=== PATIENT | female | born 1990 | race American Indian/Alaskan Native ===

== ENCOUNTER 2016-08-28 06:18 | Emergency (ER) | payer SELFPAY ==
[2016-08-28] MEDS ORDERED: TYLENOL ONE (06:31)
[2016-08-28] MEDS: TYLENOL PO ONE (06:44)
[2016-08-28 07:53] LABS: Basophils % (Auto) 1.1 % (0.0-1.8); Eosinophils % (Auto) 2.5 % (0.0-4.3); Hematocrit 39.5 % (30.3-42.9); Hemoglobin 12.3 gm/dl (10.1-14.3); Mean Corpuscular HGB Conc 31 % (30-34); Red Blood Count 5.72 M/mm3 (3.65-5.03); Red Cell Distribution Width 15.9 % (13.2-15.2); White Blood Count 7.3 K/mm3 (4.5-11.0)
[2016-08-28 08:02] LABS: Mean Corpuscular Hemoglobin 22 pg (28-32); Mean Corpuscular Volume 69 fl (79-97)
[2016-08-28 08:03] LABS: Platelet Count 191 K/mm3 (140-440)
[2016-08-28 08:18] LABS: Anion Gap 20 mmol/L; BUN/Creatinine Ratio 15.55; Blood Urea Nitrogen 14 mg/dL (7-17); Calcium 9.3 mg/dL (8.4-10.2); Carbon Dioxide 24 mmol/L (22-30); Chloride 99.1 mmol/L (98-107); Glucose 94 mg/dL (65-100); Potassium 4.4 mmol/L (3.6-5.0); Sodium 139 mmol/L (137-145)
--- NOTE | 2016-08-28 08:18 | Emergency Department Report ---
HPI - General Chief Complaint: Chest Pain Time Seen by Provider: 08/28/16 08:12 - HPI HPI: Chief complaint: Rash to chest and chest wall pain HPI: Patient complains of bilateral chest rash under her breasts. Right greater than left. Patient has had several lesions that she has expressed pus from. Patient states her chest wall slightly tender. No cough no shortness of breath. Patient states she is homeless for the last 4 days. States the rashes been going on for approximately a week. The fever, shortness of breath, cough, history of asthma, history of hypertension, diabetes or cocaine. Patient does smoke and does occasionally drink alcohol. No family history of coronary artery disease and no personal history of DVT. Mode of arrival: private car Source: Patient Began: Approximately one week Duration: One week Context: See above Quality: Sore anterior chest Severity: Mild Improved with: Nothing Worsened with: Palpation Associated signs and symptoms: See above ED Past Medical Hx - Past Medical History Previous Medical History?: Yes Additional medical history: Gastritis. Obesity - Surgical History Past Surgical History?: No - Social History Smoking Status: Current Every Day Smoker Substance Use Type: None - Medications Home Medications: Home Medications Medication Instructions Recorded Confirmed Last Taken Type Cephalexin [Keflex] 1,000 mg PO Q12HR #40 cap 08/28/16 Unknown Rx ED Review of Systems ROS: Stated complaint: CHEST PAIN Other details as noted in HPI ROS Constitutional: No fever ENT: No uri symptoms Cardiovascular: chest pain Respiratory: No sob or cough GI: No nausea vomiting or diarrhea : No dysuria frequency or urgency, Skin: rash, Neuro: No focal weakness or numbness Psych: No depression Kiran/lymph: No edema Physical Exam - Physical Exam Vital Signs: Vital Signs 08/28/16 08/28/16 08/28/16 03:14 03:20 03:30 Temperature Pulse Rate 82 83 Respiratory 25 H 22 Rate Blood Pressure 142/87 142/87 142/87 Blood Pressure [Right] O2 Sat by Pulse Oximetry 08/28/16 08/28/16 08/28/16 03:40 03:50 04:00 Temperature Pulse Rate 76 87 85 Respiratory 22 22 22 Rate Blood Pressure 117/74 135/87 135/87 Blood Pressure [Right] O2 Sat by Pulse Oximetry 08/28/16 08/28/16 08/28/16 04:10 04:20 04:30 Temperature Pulse Rate 86 88 96 H Respiratory 23 17 22 Rate Blood Pressure 113/77 119/80 119/80 Blood Pressure [Right] O2 Sat by Pulse Oximetry 08/28/16 08/28/16 08/28/16 06:37 07:06 07:10 Temperature 99.4 F Pulse Rate 74 75 69 Respiratory 20 13 12 Rate Blood Pressure 110/71 101/62 Blood Pressure 139/95 [Right] O2 Sat by Pulse 100 100 Oximetry 08/28/16 08/28/16 08/28/16 07:20 07:30 07:40 Temperature Pulse Rate 72 76 72 Respiratory 12 13 16 Rate Blood Pressure 111/72 111/72 128/83 Blood Pressure [Right] O2 Sat by Pulse Oximetry 08/28/16 07:49 Temperature Pulse Rate 87 Respiratory Rate Blood Pressure Blood Pressure [Right] O2 Sat by Pulse Oximetry Physical Exam: GENERAL: The patient is well-developed well-nourished . HEENT: Normocephalic. Atraumatic. Extraocular motions are intact. Patient has moist mucous membranes. Excess facial hair for a female. NECK: Supple. No meningitic signs are noted. There is no adenopathy noted. CHEST/LUNGS: Clear to auscultation. There is no respiratory distress noted. Rash under the right breast with several pustules. Erythema without pustules under the left breast. Mild chest wall tenderness reproducing chest pain. HEART/CARDIOVASCULAR: Regular. There is no tachycardia. There is no gallop rub or murmur. ABDOMEN: Abdomen is soft, nontender. Patient has normal bowel sounds. There is no abdominal distention. SKIN: There is no edema. There is no diaphoresis. NEURO: The patient is awake, alert, and oriented. The patient is cooperative. The patient has no focal neurologic deficits. The patient has normal speech. MUSCULOSKELETAL: There is no tenderness or deformity. There is no limitation range of motion. There is no evidence of acute injury. ED Course Vital Signs 08/28/16 08/28/16 08/28/16 03:14 03:20 03:30 Temperature Pulse Rate 82 83 Respiratory 25 H 22 Rate Blood Pressure 142/87 142/87 142/87 Blood Pressure [Right] O2 Sat by Pulse Oximetry 08/28/16 08/28/16 08/28/16 03:40 03:50 04:00 Temperature Pulse Rate 76 87 85 Respiratory 22 22 22 Rate Blood Pressure 117/74 135/87 135/87 Blood Pressure [Right] O2 Sat by Pulse Oximetry 08/28/16 08/28/16 08/28/16 04:10 04:20 04:30 Temperature Pulse Rate 86 88 96 H Respiratory 23 17 22 Rate Blood Pressure 113/77 119/80 119/80 Blood Pressure [Right] O2 Sat by Pulse Oximetry 08/28/16 08/28/16 08/28/16 06:37 07:06 07:10 Temperature 99.4 F Pulse Rate 74 75 69 Respiratory 20 13 12 Rate Blood Pressure 110/71 101/62 Blood Pressure 139/95 [Right] O2 Sat by Pulse 100 100 Oximetry 08/28/16 08/28/16 08/28/16 07:20 07:30 07:40 Temperature Pulse Rate 72 76 72 Respiratory 12 13 16 Rate Blood Pressure 111/72 111/72 128/83 Blood Pressure [Right] O2 Sat by Pulse Oximetry 08/28/16 07:49 Temperature Pulse Rate 87 Respiratory Rate Blood Pressure Blood Pressure [Right] O2 Sat by Pulse Oximetry ED Medical Decision Making - Lab Data Result diagrams: 08/28/16 07:25 08/28/16 07:25 Laboratory Tests 08/28/16 07:25 HCG, Qual Negative - EKG Data -: EKG Interpreted by Me EKG shows normal: sinus rhythm Rate: normal (68) - EKG Data When compared to previous EKG there are: no significant change Interpretation: normal EKG - Radiology Data interpreted by me: Chest x-ray shows no acute process. Critical care attestation.: If time is entered above; I have spent that time in minutes in the direct care of this critically ill patient, excluding procedure time. ED Disposition Clinical Impression: Folliculitis Disposition: DISCHARGED TO HOME OR SELFCARE Is pt being admited?: No Does the pt Need Aspirin: No Condition: Stable Instructions: Folliculitis (ED) Prescriptions: Cephalexin [Keflex] 1,000 mg PO Q12HR #40 cap Referrals: PRIMARY CAREMD [Primary Care Provider] - 3-5 Days [facility] [Provider Group] - 3-5 Days Time of Disposition: 09:35
--- NOTE | 2016-08-28 08:52 | XRay Report ---
ROUTINE CHEST, TWO VIEWS: HISTORY: chest pain. The trachea, heart, mediastinal contour, lung smith and bony thorax are unremarkable. IMPRESSION: Unremarkable chest x-ray.
[2016-08-28 09:48] VITALS: BP 114/71
[2016-08-28] MEDS: KEFLEX PO ONE (09:57)
== END 2016-08-28 10:20 | disposition home or self-care (01) ==
LOC: ED 06:18
DX: L73.9 Follicular disorder, unspecified (principal); F17.200 Nicotine dependence, unspecified, uncomplicated
CPT/HCPCS: 36415; 71020; 80048; 84484; 84703; 85025; 93005; 93010; 99285

== ENCOUNTER 2018-07-17 06:53 | Emergency (ER) | payer SELFPAY ==
[2018-07-17] MEDS ORDERED: NACL 0.9% 1000 ML 1,000 ML IV ONE ×2 (07:40→08:13)
[2018-07-17 08:05] LABS: Hematocrit 40.1 % (30.3-42.9); Hemoglobin 12.7 gm/dl (10.1-14.3); Mean Corpuscular HGB Conc 32 % (30-34); Platelet Count 215 K/mm3 (140-440); Red Blood Count 5.81 M/mm3 (3.65-5.03)
[2018-07-17 08:06] LABS: Mean Corpuscular Volume 69 fl (79-97)
[2018-07-17] MEDS ORDERED: REGLAN IV ONE (08:13)
--- NOTE | 2018-07-17 08:18 | Emergency Department Report ---
ED Abdominal Pain HPI - General Chief Complaint: Abdominal Pain Stated Complaint: BACK PAIN,ABD PAIN, VOMITING Source: patient Mode of arrival: Ambulatory Limitations: No Limitations - History of Present Illness Initial Comments: This is a 27-year-old -[place] female represents with abdominal pain for 2 weeks. Patient reports pain is in the left upper quadrant and nonradiating. She reports pain as a sharp intermittent pain that lasts for 30 minutes to an hour. She also reports nausea and vomiting. History of gastritis and obesity. Patient is a current smoker, 2-3 cigarettes per day. She denies fever, chest pain, shortness of breath, diarrhea, frequency, urgency, or dysuria. MD Complaint: abdominal pain Onset/Timin -: week(s) Location: LUQ Radiation: none Migration to: no migration Severity: moderate Severity scale (0 -10): 5 Quality: cramping, sharp Consistency: intermittent Improves With: nothing Worsens With: eating Associated Symptoms: nausea, vomiting. denies: diarrhea, fever, chills, constipation, dysuria, hematemesis, hematochezia, melena, hematuria, anorexia, syncope - Related Data LMP Date: 06/26/18 Previous Rx's Medication Instructions Recorded Last Taken Type cephALEXin [Keflex] 1,000 mg PO Q12HR #40 cap 08/28/16 Unknown Rx Ciprofloxacin HCl [Cipro] 500 mg PO BID #14 tablet 07/17/18 Unknown Rx Omeprazole 40 mg PO DAILY #30 capsule. 07/17/18 Unknown Rx Ondansetron [Zofran Odt] 4 mg PO Q8HR PRN #12 tab.rapdis 07/17/18 Unknown Rx Allergies Allergy/AdvReac Type Severity Reaction Status Date / Time sulfamethoxazole Allergy Swelling Verified 08/28/16 06:37 [From Bactrim] trimethoprim [From Bactrim] Allergy Swelling Verified 08/28/16 06:37 ED Review of Systems ROS: Stated complaint: BACK PAIN,ABD PAIN, VOMITING Other details as noted in HPI Constitutional: denies: chills, fever Respiratory: denies: cough, shortness of breath, wheezing Cardiovascular: denies: chest pain, palpitations Gastrointestinal: abdominal pain, nausea, vomiting. denies: diarrhea, constipation, hematemesis, melena, hematochezia Genitourinary: denies: urgency, dysuria, discharge Neurological: denies: headache, weakness, paresthesias Psychiatric: denies: anxiety, depression ED Past Medical Hx - Past Medical History Previous Medical History?: Yes Additional medical history: Gastritis. Obesity - Surgical History Past Surgical History?: No - Social History Smoking Status: Current Every Day Smoker Substance Use Type: None - Medications Home Medications: Home Medications Medication Instructions Recorded Confirmed Last Taken Type cephALEXin [Keflex] 1,000 mg PO Q12HR #40 cap 08/28/16 Unknown Rx Ciprofloxacin HCl [Cipro] 500 mg PO BID #14 tablet 07/17/18 Unknown Rx Omeprazole 40 mg PO DAILY #30 capsule. 07/17/18 Unknown Rx Ondansetron [Zofran Odt] 4 mg PO Q8HR PRN #12 tab.rapdis 07/17/18 Unknown Rx ED Physical Exam - General Limitations: No Limitations General appearance: alert, in no apparent distress, obese (morbidly obese ) - Respiratory Respiratory exam: Present: normal lung sounds bilaterally. Absent: respiratory distress - Cardiovascular Cardiovascular Exam: Present: regular rate, normal rhythm. Absent: systolic murmur, diastolic murmur, rubs, gallop - GI/Abdominal GI/Abdominal exam: Present: soft, tenderness (right upper quadrant and left upper quadrant tenderness), normal bowel sounds. Absent: distended, guarding, rebound, rigid, organomegaly, mass, bruit, pulsatile mass, hernia - Back Exam Back exam: Absent: CVA tenderness (R), CVA tenderness (L) - Neurological Exam Neurological exam: Present: alert, oriented X3, normal gait - Psychiatric Psychiatric exam: Present: normal affect, normal mood - Skin Skin exam: Present: warm, dry, intact, normal color. Absent: rash ED Course Vital Signs 07/17/18 07:37 Temperature 98.8 F Pulse Rate 100 H O2 Sat by Pulse 100 Oximetry ED Medical Decision Making - Lab Data Result diagrams: 07/17/18 07:52 07/17/18 07:52 Lab Results 07/17/18 07/17/18 07/17/18 Range/Units 07:52 07:52 07:52 WBC 11.7 H (4.5-11.0) K/mm3 RBC 5.81 H (3.65-5.03) M/mm3 Hgb 12.7 (10.1-14.3) gm/dl Hct 40.1 (30.3-42.9) % MCV 69 L (79-97) fl MCH 22 L (28-32) pg MCHC 32 (30-34) % RDW 16.0 H (13.2-15.2) % Plt Count 215 (140-440) K/mm3 Eos % (Auto) Behavioral Consultant Add Manual Diff Complete Total Counted 100 Seg Neuts % (Manual) 53.0 (40.0-70.0) % Band Neutrophils % 0 % Lymphocytes % (Manual) 22.0 (13.4-35.0) % Reactive Lymphs % (Man) 0 % Monocytes % (Manual) 3.0 (0.0-7.3) % Eosinophils % (Manual) 21.0 H (0.0-4.3) % Basophils % (Manual) 1.0 (0.0-1.8) % Metamyelocytes % 0 % Myelocytes % 0 % Promyelocytes % 0 % Blast Cells % 0 % Nucleated RBC % Not Reportable Seg Neutrophils # Man 6.2 (1.8-7.7) K/mm3 Band Neutrophils # 0.0 K/mm3 Lymphocytes # (Manual) 2.6 (1.2-5.4) K/mm3 Abs React Lymphs (Man) 0.0 K/mm3 Monocytes # (Manual) 0.4 (0.0-0.8) K/mm3 Eosinophils # (Manual) 2.5 H (0.0-0.4) K/mm3 Basophils # (Manual) 0.1 (0.0-0.1) K/mm3 Metamyelocytes # 0.0 K/mm3 Myelocytes # 0.0 K/mm3 Promyelocytes # 0.0 K/mm3 Blast Cells # 0.0 K/mm3 WBC Morphology Not Reportable Hypersegmented Neuts Not Reportable Hyposegmented Neuts Not Reportable Hypogranular Neuts Not Reportable Smudge Cells Not Reportable Toxic Granulation Not Reportable Toxic Vacuolation Not Reportable Dohle Bodies Not Reportable Pelger-Huet Anomaly Not Reportable Jaleesa Rods Not Reportable Platelet Estimate Consistent w auto Clumped Platelets Not Reportable Plt Clumps, EDTA Not Reportable Large Platelets Not Reportable Giant Platelets Not Reportable Platelet Satelliting Not Reportable Plt Morphology Comment Not Reportable RBC Morphology Not Reportable Dimorphic RBCs Not Reportable Polychromasia Not Reportable Hypochromasia Not Reportable Poikilocytosis 1+ Anisocytosis 1+ Microcytosis Not Reportable Macrocytosis Not Reportable Spherocytes Not Reportable Pappenheimer Bodies Not Reportable Sickle Cells Not Reportable Target Cells Not Reportable Tear Drop Cells Not Reportable Ovalocytes Few Helmet Cells Not Reportable Mckoy-Watson Bodies Not Reportable Viola Rings Not Reportable [place] Cells Not Reportable Bite Cells Not Reportable Crenated Cell Not Reportable Elliptocytes Not Reportable Acanthocytes (Spur) Not Reportable Rouleaux Not Reportable Hemoglobin C Crystals Not Reportable Schistocytes Not Reportable Malaria parasites Not Reportable Michael Bodies Not Reportable Hem Pathologist Commnt No Sodium 137 (137-145) mmol/L Potassium 4.3 (3.6-5.0) mmol/L Chloride 102.8 (98-107) mmol/L Carbon Dioxide 23 (22-30) mmol/L Anion Gap 16 mmol/L BUN 10 (7-17) mg/dL Creatinine 0.8 (0.7-1.2) mg/dL Estimated GFR > 60 ml/min BUN/Creatinine Ratio 13 % Glucose 99 (65-100) mg/dL Calcium 9.0 (8.4-10.2) mg/dL Total Bilirubin 0.60 (0.1-1.2) mg/dL AST 15 (5-40) units/L ALT 17 (7-56) units/L Alkaline Phosphatase 69 (35-129) units/L Total Protein 7.0 (6.3-8.2) g/dL Albumin 4.0 (3.9-5) g/dL Albumin/Globulin Ratio 1.3 % Lipase (13-60) units/L Urine Color Yellow (Yellow) Urine Turbidity Clear (Clear) Urine pH 6.0 (5.0-7.0) Ur Specific [place] 1.016 (1.003-1.030) Urine Protein <15 mg/dl (Negative) mg/dL Urine Glucose (UA) Neg (Negative) mg/dL Urine Ketones Neg (Negative) mg/dL Urine Blood Mod (Negative) Urine Nitrite Neg (Negative) Urine Bilirubin Neg (Negative) Urine Urobilinogen 2.0 (<2.0) mg/dL Ur Leukocyte Esterase Neg (Negative) Urine WBC (Auto) < 1.0 (0.0-6.0) /HPF Urine RBC (Auto) 2.0 (0.0-6.0) /HPF U Epithel Cells (Auto) 2.0 (0-13.0) /HPF Urine Mucus Few /HPF Urine HCG, Qual (Negative) 07/17/18 07/17/18 Range/Units 07:52 07:52 WBC (4.5-11.0) K/mm3 RBC (3.65-5.03) M/mm3 Hgb (10.1-14.3) gm/dl Hct (30.3-42.9) % MCV (79-97) fl MCH (28-32) pg MCHC (30-34) % RDW (13.2-15.2) % Plt Count (140-440) K/mm3 Eos % (Auto) Add Manual Diff Total Counted Seg Neuts % (Manual) (40.0-70.0) % Band Neutrophils % % Lymphocytes % (Manual) (13.4-35.0) % Reactive Lymphs % (Man) % Monocytes % (Manual) (0.0-7.3) % Eosinophils % (Manual) (0.0-4.3) % Basophils % (Manual) (0.0-1.8) % Metamyelocytes % % Myelocytes % % Promyelocytes % % Blast Cells % % Nucleated RBC % Seg Neutrophils # Man (1.8-7.7) K/mm3 Band Neutrophils # K/mm3 Lymphocytes # (Manual) (1.2-5.4) K/mm3 Abs React Lymphs (Man) K/mm3 Monocytes # (Manual) (0.0-0.8) K/mm3 Eosinophils # (Manual) (0.0-0.4) K/mm3 Basophils # (Manual) (0.0-0.1) K/mm3 Metamyelocytes # K/mm3 Myelocytes # K/mm3 Promyelocytes # K/mm3 Blast Cells # K/mm3 WBC Morphology Hypersegmented Neuts Hyposegmented Neuts Hypogranular Neuts Smudge Cells Toxic Granulation Toxic Vacuolation Dohle Bodies Pelger-Huet Anomaly Jaleesa Rods Platelet Estimate Clumped Platelets Plt Clumps, EDTA Large Platelets Giant Platelets Platelet Satelliting Plt Morphology Comment RBC Morphology Dimorphic RBCs Polychromasia Hypochromasia Poikilocytosis Anisocytosis Microcytosis Macrocytosis Spherocytes Pappenheimer Bodies Sickle Cells Target Cells Tear Drop Cells Ovalocytes Helmet Cells Mckoy-Watson Bodies Viola Rings [place] Cells Bite Cells Crenated Cell Elliptocytes Acanthocytes (Spur) Rouleaux Hemoglobin C Crystals Schistocytes Malaria parasites Michael Bodies Hem Pathologist Commnt Sodium (137-145) mmol/L Potassium (3.6-5.0) mmol/L Chloride (98-107) mmol/L Carbon Dioxide (22-30) mmol/L Anion Gap mmol/L BUN (7-17) mg/dL Creatinine (0.7-1.2) mg/dL Estimated GFR ml/min BUN/Creatinine Ratio % Glucose (65-100) mg/dL Calcium (8.4-10.2) mg/dL Total Bilirubin (0.1-1.2) mg/dL AST (5-40) units/L ALT (7-56) units/L Alkaline Phosphatase (35-129) units/L Total Protein (6.3-8.2) g/dL Albumin (3.9-5) g/dL Albumin/Globulin Ratio % Lipase 23 (13-60) units/L Urine Color (Yellow) Urine Turbidity (Clear) Urine pH (5.0-7.0) Ur Specific [place] (1.003-1.030) Urine Protein (Negative) mg/dL Urine Glucose (UA) (Negative) mg/dL Urine Ketones (Negative) mg/dL Urine Blood (Negative) Urine Nitrite (Negative) Urine Bilirubin (Negative) Urine Urobilinogen (<2.0) mg/dL Ur Leukocyte Esterase (Negative) Urine WBC (Auto) (0.0-6.0) /HPF Urine RBC (Auto) (0.0-6.0) /HPF U Epithel Cells (Auto) (0-13.0) /HPF Urine Mucus /HPF Urine HCG, Qual Negative (Negative) - Radiology Data Radiology results: report reviewed CT ABDOMEN AND PELVIS WITHOUT CONTRAST INDICATION: RUQ, LUQ tenderness. COMPARISON: None similar. FINDINGS: Noncontrast abdomen and pelvis CT performed. LUNG BASES: Top normal heart size. Slight nonspecific distal esophageal wall prominence/thickening, not excluded for gastroesophageal reflux and/or hiatal hernia, amongst others. ABDOMEN: Please note that sensitivity to detect small visceral lesions is limited due to the absence of intravenous or oral contrast. Right hepatic lobe 18.4 cm in mid clavicular length. Otherwise grossly unremarkable unenhanced liver, spleen, gallbladder, pancreas, adrenals, aorta, IVC and kidneys. No ascites. Subtle mesenteric root haziness with multiple mesenteric lymph nodes, some subcentimeter while others prominent/enlarged to approximately 1.8 x 0.9 cm as on axial image 92, series 2 with various differential considerations including edema, inflammation, idiopathic or even neoplastic as lymphoma. Nonopacified GI tract evaluation limited, though grossly nonobstructive. Diffuse exaggerated gastric wall thickness, though suboptimally distended. Duodenum appears unremarkable. However, few proximal to mid small bowel loops as on axial series 2, images 86-130 demonstrate diffuse wall thickening with slight adjacent/mesenteric fat stranding, more so on the left on axial images 105-120. Further distal small bowel, including the terminal ileum appears unremarkable. Small 5 mm appendicolith possible, axial image 119. Mild stool throughout colon/possible constipation, more so proximally. Few distal descending colon diverticuli. Small fat containing umbilical hernia with a transverse neck of 0.7 cm. PELVIS: Grossly unremarkable non-opacified urinary bladder. Vague right lower quadrant 5.5 cm soft tissue fullness as on axial images 139-150, series 2, may be contributed by nonopacified small bowel, right adnexa/ovary and some questionable fluid. Approximately 2.9 cm left adnexal/ovarian soft tissue also noted as on axial image 140. Minimal left hemipelvic free fluid as on axial image 154. Tiny pelvic phleboliths.. Mild rectosigmoid stool. Unremarkable bones. CONCLUSION: 1. Mid small bowel segment diffuse wall thickening/enteritis with slight surrounding inflammatory stranding noted, as described, amongst others. 2. Subtle "becky mesentery" with various differential considerations, as discussed above. 3. Few other incidental findings, including slight distal esophageal prominence, prominent/slightly enlarged liver and mild diverticulosis, amongst others, as above. - Medical Decision Making This is a 27 y.o. female that presents with nausea, vomiting, diarrhea and abdominal pain for 2 weeks. Patient is stable and was examined by me. Vitals stable. Obtained labs and CT of abdomen. CT of abdomen and pelvis obtained and dictated by radiologist. 1. Mid small bowel segment diffuse wall thickening/enteritis with slight surrounding inflammatory stranding noted, as described, amongst others. 2. Subtle "becky mesentery" with various differential considerations, as discussed above. 3. Few other incidental findings, including slight distal esophageal prominence, prominent/slightly enlarged liver and mild diverticulosis,amongst others, as above. Given zofran odt 4 mg po once in ER. Start Cipro, Zofran, and omeprazole for gastroenteritis. Referral to [facility] for continued care. Discussed plan with patient and agreed to plan. No further questions noted by the patient. Discharged home in stable condition. Follow up with PCP in 2-3 days. Critical care attestation.: If time is entered above; I have spent that time in minutes in the direct care of this critically ill patient, excluding procedure time. ED Disposition Clinical Impression: Gastroenteritis, Nausea and vomiting in adult, Diarrhea in adult patient Disposition: TO HOME OR SELFCARE Is pt being admited?: No Does the pt Need Aspirin: No Condition: Stable Instructions: Abdominal Pain (ED), Gastroenteritis (ED), Acute Nausea and Vomiting (ED) Additional Instructions: Frequent hand washing is important to reduce spread. Prompt disinfection of contaminated surfaces with household chlorine bleach- based associate faculty and washing of soiled clothing and bedding should be advised. If food or water is thought to be contaminated, it should be avoided. Increase fluid intake. Drinks high in sugars such as carbonated soft drinks, fruit juice, and highly sugared liquids should be avoided. Prescriptions: Ciprofloxacin HCl [Cipro] 500 mg PO BID #14 tablet Omeprazole 40 mg PO DAILY #30 capsule. Ondansetron [Zofran Odt] 4 mg PO Q8HR PRN #12 tab.rapdis PRN Reason: Nausea And Vomiting Referrals: KEVIN ANDERSON MD [Primary Care Provider] - 3-5 Days [facility] [Provider Group] - 3-5 Days [facility] [Outside] - 3-5 Days Time of Disposition: 10:58
[2018-07-17 08:24] LABS: Bilirubin,Urine NEG (Negative); Blood,Urine MOD (Negative); Color,Urine Yellow (Yellow); Mucus,Urine FEW /HPF; Protein,Urine <15 mg/dL mg/dL (Negative); WBC,Urine < 1.0 /HPF (0.0-6.0)
[2018-07-17 08:27] LABS: HCG Qualitative,Urine Negative (Negative)
[2018-07-17 08:29] LABS: Alanine Aminotransferase 17 units/L (7-56); BUN/Creatinine Ratio 13; Blood Urea Nitrogen 10 mg/dL (7-17); Hemolysis Index 20
[2018-07-17 08:55] LABS: Total Cells Counted 100
[2018-07-17 08:56] LABS: Anisocytosis 1+; Ovalocytes Few; Platelet Estimate Consistent w Auto; Poikilocytosis 1+
[2018-07-17] MEDS ORDERED: ZOFRAN ODT PO ONE (09:57)
--- NOTE | 2018-07-17 10:40 | Cat Scan Report ---
CT ABDOMEN AND PELVIS WITHOUT CONTRAST INDICATION: RUQ, LUQ tenderness. COMPARISON: None similar. FINDINGS: Noncontrast abdomen and pelvis CT performed. LUNG BASES: Top normal heart size. Slight nonspecific distal esophageal wall prominence/thickening, not excluded for gastroesophageal reflux and/or hiatal hernia, amongst others. ABDOMEN: Please note that sensitivity to detect small visceral lesions is limited due to the absence of intravenous or oral contrast. Right hepatic lobe 18.4 cm in mid clavicular length. Otherwise grossly unremarkable unenhanced liver, spleen, gallbladder, pancreas, adrenals, aorta, IVC and kidneys. No ascites. Subtle mesenteric root haziness with multiple mesenteric lymph nodes, some subcentimeter while others prominent/enlarged to approximately 1.8 x 0.9 cm as on axial image 92, series 2 with various differential considerations including edema, inflammation, idiopathic or even neoplastic as lymphoma. Nonopacified GI tract evaluation limited, though grossly nonobstructive. Diffuse exaggerated gastric wall thickness, though suboptimally distended. Duodenum appears unremarkable. However, few proximal to mid small bowel loops as on axial series 2, images 86-130 demonstrate diffuse wall thickening with slight adjacent/mesenteric fat stranding, more so on the left on axial images 105-120. Further distal small bowel, including the terminal ileum appears unremarkable. Small 5 mm appendicolith possible, axial image 119. Mild stool throughout colon/possible constipation, more so proximally. Few distal descending colon diverticuli. Small fat containing umbilical hernia with a transverse neck of 0.7 cm. PELVIS: Grossly unremarkable non-opacified urinary bladder. Vague right lower quadrant 5.5 cm soft tissue fullness as on axial images 139-150, series 2, may be contributed by nonopacified small bowel, right adnexa/ovary and some questionable fluid. Approximately 2.9 cm left adnexal/ovarian soft tissue also noted as on axial image 140. Minimal left hemipelvic free fluid as on axial image 154. Tiny pelvic phleboliths.. Mild rectosigmoid stool. Unremarkable bones. CONCLUSION: 1. Mid small bowel segment diffuse wall thickening/enteritis with slight surrounding inflammatory stranding noted, as described, amongst others. 2. Subtle "becky mesentery" with various differential considerations, as discussed above. 3. Few other incidental findings, including slight distal esophageal prominence, prominent/slightly enlarged liver and mild diverticulosis, amongst others, as above. Thank you for the opportunity to participate in this patient's care.
[2018-07-19 11:37] VITALS: BP 122/79
== END 2018-07-17 11:12 | disposition home or self-care (01) ==
LOC: ED 06:53
DX: K52.9 Noninfective gastroenteritis and colitis, unspecified (principal); F17.200 Nicotine dependence, unspecified, uncomplicated
CPT/HCPCS: 36415; 74176; 80053; 81001; 81025; 83690; 85007; 85025; 99284; J2765; J7030; Q0162

== ENCOUNTER 2018-07-19 22:18 | Emergency (ER) | payer SELFPAY ==
[2018-07-19 22:37] VITALS: BP 124/76
[2018-07-20 00:12] LABS: Bilirubin,Urine NEG (Negative); Blood,Urine NEG (Negative); Color,Urine Straw (Yellow); Protein,Urine <15 mg/dL mg/dL (Negative); Urobilinogen,Urine < 2.0 mg/dL (<2.0)
[2018-07-20 00:21] LABS: HCG Qualitative,Urine Negative (Negative)
--- NOTE | 2018-07-20 01:50 | Emergency Department Report ---
ED General Adult HPI - General Chief complaint: Upper Respiratory Infection Stated complaint: CHEST PAIN/BACK PAIN Time Seen by Provider: 07/20/18 01:08 Source: patient Mode of arrival: Ambulatory Limitations: No Limitations - History of Present Illness Initial comments: This is a 27-year-old female that was urine to 07/05/2018 for complaints of abdominal fullness with some generalized pain, back pain nausea and she is also complaining of significant nasal mucosal coughing up mucus with no complaints of shortness of breath. She denies any sore throats. Denies any headache. Patient was given Zofran,, omeprazole, ciprofloxacin and she says she lost the prescription and her friends house. She says she feels like her blood is poisoned and she just does not feel any better. She has a history of gastritis and denies any alcohol use. She has had a history of obesity. Patient says she is homeless but denies any mental health problem. She says she saw her grandmother today and her grandmother told to go back to the hospital she is actually better. She denies any fever or chills or neck pain or stiffness. Denies any recent weight loss of 20 pounds or more over the last 3 months. MD Complaint: generalized pain upper respiratory symptoms nausea with back pain Onset/Timin -: month(s) Location: back, abdomen Radiation: non-radiation Severity scale (0 -10): 10 Quality: aching Consistency: intermittent Improves with: rest Worsens with: movement Associated Symptoms: cough, malaise, nausea/vomiting, weakness. denies: confusion, chest pain, diaphoresis, fever/chills, headaches, loss of appetite, rash, seizure, shortness of breath, syncope Treatments Prior to Arrival: none - Related Data Previous Rx's Medication Instructions Recorded Last Taken Type cephALEXin [Keflex] 1,000 mg PO Q12HR #40 cap 08/28/16 Unknown Rx Ciprofloxacin HCl [Cipro] 500 mg PO BID #14 tablet 07/17/18 Unknown Rx Omeprazole 40 mg PO DAILY #30 capsule. 07/17/18 Unknown Rx Ondansetron [Zofran Odt] 4 mg PO Q8HR PRN #12 tab.rapdis 07/17/18 Unknown Rx Amoxicillin/K Clav Tab [Augmentin 1 tab PO Q12HR #20 tab 07/20/18 Unknown Rx 875MG TAB] Cetirizine HCl [ZyrTEC] 10 mg PO QAM 14 Days #14 capsule 07/20/18 Unknown Rx Fluticasone [Flonase] 1 spray NS QDAY 14 Days #1 bottle 07/20/18 Unknown Rx Omeprazole 40 mg PO QDAY 30 Days #30 07/20/18 Unknown Rx capsule. Ondansetron [Zofran ODT TAB] 8 mg PO Q8HR PRN #12 tab.rapdis 07/20/18 Unknown Rx Allergies Allergy/AdvReac Type Severity Reaction Status Date / Time sulfamethoxazole Allergy Swelling Verified 08/28/16 06:37 [From Bactrim] trimethoprim [From Bactrim] Allergy Swelling Verified 08/28/16 06:37 ED Review of Systems ROS: Stated complaint: CHEST PAIN/BACK PAIN Other details as noted in HPI Constitutional: malaise. denies: chills, fever Eyes: denies: eye pain, eye discharge ENT: congestion. denies: ear pain, throat pain Respiratory: cough. denies: shortness of breath, SOB with exertion, SOB at rest, stridor, wheezing Cardiovascular: chest pain. denies: palpitations, dyspnea on exertion, edema, syncope, paroxysmal nocturnal dyspnea Gastrointestinal: abdominal pain, nausea. denies: vomiting, diarrhea, constipation, hematemesis, melena, hematochezia Genitourinary: denies: dysuria, hematuria, discharge, dyspareunia Musculoskeletal: back pain, arthralgia, myalgia. denies: joint swelling Skin: denies: rash Neurological: weakness. denies: headache, numbness, paresthesias, confusion, abnormal gait, vertigo ED Past Medical Hx - Past Medical History Previous Medical History?: Yes Additional medical history: Gastritis. Obesity - Surgical History Past Surgical History?: No - Family History Family history: no significant - Social History Smoking Status: Current Every Day Smoker Substance Use Type: None, Alcohol - Medications Home Medications: Home Medications Medication Instructions Recorded Confirmed Last Taken Type cephALEXin [Keflex] 1,000 mg PO Q12HR #40 cap 08/28/16 Unknown Rx Ciprofloxacin HCl [Cipro] 500 mg PO BID #14 tablet 07/17/18 Unknown Rx Omeprazole 40 mg PO DAILY #30 capsule. 07/17/18 Unknown Rx Ondansetron [Zofran Odt] 4 mg PO Q8HR PRN #12 tab.rapdis 07/17/18 Unknown Rx Amoxicillin/K Clav Tab [Augmentin 1 tab PO Q12HR #20 tab 07/20/18 Unknown Rx 875MG TAB] Cetirizine HCl [ZyrTEC] 10 mg PO QAM 14 Days #14 capsule 07/20/18 Unknown Rx Fluticasone [Flonase] 1 spray NS QDAY 14 Days #1 bottle 07/20/18 Unknown Rx Omeprazole 40 mg PO QDAY 30 Days #30 07/20/18 Unknown Rx capsule. Ondansetron [Zofran ODT TAB] 8 mg PO Q8HR PRN #12 tab.rapdis 07/20/18 Unknown Rx ED Physical Exam - General Limitations: No Limitations General appearance: alert, in no apparent distress - Head Head exam: Present: atraumatic, normocephalic, normal inspection, other (normal exam) - Eye Eye exam: Present: normal appearance, PERRL, EOMI Pupils: Present: normal accommodation - ENT ENT exam: Present: normal exam, normal orophraynx, mucous membranes moist, TM's normal bilaterally, normal external ear exam - Neck Neck exam: Present: normal inspection, full ROM. Absent: tenderness, lymphadenopathy - Respiratory Respiratory exam: Present: normal lung sounds bilaterally. Absent: respiratory distress, chest wall tenderness - Cardiovascular Cardiovascular Exam: Present: regular rate, normal rhythm, normal heart sounds. Absent: systolic murmur, diastolic murmur - GI/Abdominal GI/Abdominal exam: Present: soft, normal bowel sounds. Absent: distended, tenderness, guarding, rebound, rigid, organomegaly, mass, bruit, pulsatile mass - Extremities Exam Extremities exam: Present: normal inspection, full ROM, normal capillary refill, other (No cce. + 2 pulses in all extremities, no neurovascular compromise). Abs ent: tenderness, pedal edema, joint swelling, calf tenderness - Back Exam Back exam: Present: normal inspection, full ROM, other (amylase without any difficulties). Absent: tenderness, CVA tenderness (R), CVA tenderness (L), muscle spasm, paraspinal tenderness, vertebral tenderness, rash noted - Neurological Exam Neurological exam: Present: alert, oriented X3, normal gait, reflexes normal, other (no focal deficits). Absent: motor sensory deficit - Psychiatric Psychiatric exam: Present: normal affect, normal mood - Skin Skin exam: Present: warm, dry, intact, normal color. Absent: rash ED Course Vital Signs 07/19/18 07/19/18 22:36 22:37 Temperature 99.0 F 99 F Pulse Rate 74 75 Respiratory 18 18 Rate Blood Pressure 124/76 124/76 O2 Sat by Pulse 100 100 Oximetry - Reevaluation(s) Reevaluation #1: 07/20/18 02:59 Patient was given Zofran 8 mg ODT for nausea, Maalox 30 mL and lidocaine 15 mL for stomach discomfort. She was given Bentyl 40 mg by mouth. She said he is feeling better. She had pelvic ultrasound that shows no abnormality but she refused transvaginal ultrasound. Patient had originally agreed to have the tra nsvaginal ultrasound because I told her that is better than the pelvic ultrasound but when she went down she told the tech she does not want that because she is a virgin. headend technician reported that she documented this as she did not refuse in the emergency room. I discussed the patient that tra nsvaginal ultrasound which show flow to the ovary but she did not have that so we cannot definitively rule out any twisting of the ovary which she says she is not really having any pain down there now. Reevaluation #2: 07/20/18 04:04 Patient is stable and I spoke with Dr. Hoffmann who is the attending physician. This patient had abnormal CT scan of the abdomen and pelvis without contrast on 07/17/2018 it was decided that patient will have repeat labs and CT scan of the abdomen and pelvis with IV and by mouth contrast. Patient is in agreement Reevaluation #3: 07/20/18 07:22 Patient is stable and in no acute distress at present. ED Medical Decision Making - Lab Data Result diagrams: 07/20/18 04:20 07/20/18 04:20 Lab Results 07/19/18 07/20/18 07/20/18 Range/Units 23:50 04:20 04:20 WBC 10.2 (4.5-11.0) K/mm3 RBC 5.44 H (3.65-5.03) M/mm3 Hgb 11.9 (10.1-14.3) gm/dl Hct 37.3 (30.3-42.9) % MCV 69 L (79-97) fl MCH 22 L (28-32) pg MCHC 32 (30-34) % RDW 15.4 H (13.2-15.2) % Plt Count 200 (140-440) K/mm3 Add Manual Diff Complete Total Counted 100 Seg Neuts % (Manual) 42.0 (40.0-70.0) % Band Neutrophils % 0 % Lymphocytes % (Manual) 36.0 H (13.4-35.0) % Reactive Lymphs % (Man) 0 % Monocytes % (Manual) 4.0 (0.0-7.3) % Eosinophils % (Manual) 18.0 H (0.0-4.3) % Basophils % (Manual) 0 (0.0-1.8) % Metamyelocytes % 0 % Myelocytes % 0 % Promyelocytes % 0 % Blast Cells % 0 % Nucleated RBC % Not Reportable Seg Neutrophils # Man 4.3 (1.8-7.7) K/mm3 Band Neutrophils # 0.0 K/mm3 Lymphocytes # (Manual) 3.7 (1.2-5.4) K/mm3 Abs React Lymphs (Man) 0.0 K/mm3 Monocytes # (Manual) 0.4 (0.0-0.8) K/mm3 Eosinophils # (Manual) 1.8 H (0.0-0.4) K/mm3 Basophils # (Manual) 0.0 (0.0-0.1) K/mm3 Metamyelocytes # 0.0 K/mm3 Myelocytes # 0.0 K/mm3 Promyelocytes # 0.0 K/mm3 Blast Cells # 0.0 K/mm3 WBC Morphology Not Reportable Hypersegmented Neuts Not Reportable Hyposegmented Neuts Not Reportable Hypogranular Neuts Not Reportable Smudge Cells Not Reportable Toxic Granulation Not Reportable Toxic Vacuolation Not Reportable Dohle Bodies Not Reportable Pelger-Huet Anomaly Not Reportable Jaleesa Rods Not Reportable Platelet Estimate Consistent w auto Clumped Platelets Not Reportable Plt Clumps, EDTA Not Reportable Large Platelets Not Reportable Giant Platelets Not Reportable Platelet Satelliting Not Reportable Plt Morphology Comment Not Reportable RBC Morphology Not Reportable Dimorphic RBCs Not Reportable Polychromasia Not Reportable Hypochromasia 1+ Poikilocytosis Not Reportable Anisocytosis 2+ Microcytosis 1+ Macrocytosis Not Reportable Spherocytes Not Reportable Pappenheimer Bodies Not Reportable Sickle Cells Not Reportable Target Cells Not Reportable Tear Drop Cells 1+ Ovalocytes Not Reportable Helmet Cells Not Reportable [place] Bodies Not Reportable [place] Rings Not Reportable [place] Cells Not Reportable Bite Cells Not Reportable Crenated Cell Not Reportable Elliptocytes Not Reportable Acanthocytes (Spur) Not Reportable Rouleaux Not Reportable Hemoglobin C Crystals Not Reportable Schistocytes Not Reportable Malaria parasites Not Reportable Michael Bodies Not Reportable Hem Pathologist Commnt No Sodium (137-145) mmol/L Potassium (3.6-5.0) mmol/L Chloride (98-107) mmol/L Carbon Dioxide (22-30) mmol/L Anion Gap mmol/L BUN (7-17) mg/dL Creatinine (0.7-1.2) mg/dL Estimated GFR ml/min BUN/Creatinine Ratio % Glucose (65-100) mg/dL Calcium (8.4-10.2) mg/dL Total Bilirubin (0.1-1.2) mg/dL Direct Bilirubin (0-0.2) mg/dL Indirect Bilirubin mg/dL AST (5-40) units/L ALT (7-56) units/L Alkaline Phosphatase (35-129) units/L Total Protein (6.3-8.2) g/dL Albumin (3.9-5) g/dL Albumin/Globulin Ratio % Lipase 27 (13-60) units/L Urine Color Straw (Yellow) Urine Turbidity Clear (Clear) Urine pH 6.0 (5.0-7.0) Ur Specific Larose 1.006 (1.003-1.030) Urine Protein <15 mg/dl (Negative) mg/dL Urine Glucose (UA) Neg (Negative) mg/dL Urine Ketones Neg (Negative) mg/dL Urine Blood Neg (Negative) Urine Nitrite Neg (Negative) Urine Bilirubin Neg (Negative) Urine Urobilinogen < 2.0 (<2.0) mg/dL Ur Leukocyte Esterase Neg (Negative) Urine WBC (Auto) 1.0 (0.0-6.0) /HPF Urine RBC (Auto) 1.0 (0.0-6.0) /HPF U Epithel Cells (Auto) < 1.0 (0-13.0) /HPF Urine HCG, Qual Negative (Negative) 07/20/18 Range/Units 04:20 WBC (4.5-11.0) K/mm3 RBC (3.65-5.03) M/mm3 Hgb (10.1-14.3) gm/dl Hct (30.3-42.9) % MCV (79-97) fl MCH (28-32) pg MCHC (30-34) % RDW (13.2-15.2) % Plt Count (140-440) K/mm3 Add Manual Diff Total Counted Seg Neuts % (Manual) (40.0-70.0) % Band Neutrophils % % Lymphocytes % (Manual) (13.4-35.0) % Reactive Lymphs % (Man) % Monocytes % (Manual) (0.0-7.3) % Eosinophils % (Manual) (0.0-4.3) % Basophils % (Manual) (0.0-1.8) % Metamyelocytes % % Myelocytes % % Promyelocytes % % Blast Cells % % Nucleated RBC % Seg Neutrophils # Man (1.8-7.7) K/mm3 Band Neutrophils # K/mm3 Lymphocytes # (Manual) (1.2-5.4) K/mm3 Abs React Lymphs (Man) K/mm3 Monocytes # (Manual) (0.0-0.8) K/mm3 Eosinophils # (Manual) (0.0-0.4) K/mm3 Basophils # (Manual) (0.0-0.1) K/mm3 Metamyelocytes # K/mm3 Myelocytes # K/mm3 Promyelocytes # K/mm3 Blast Cells # K/mm3 WBC Morphology Hypersegmented Neuts Hyposegmented Neuts Hypogranular Neuts Smudge Cells Toxic Granulation Toxic Vacuolation Dohle Bodies Pelger-Huet Anomaly Jaleesa Rods Platelet Estimate Clumped Platelets Plt Clumps, EDTA Large Platelets Giant Platelets Platelet Satelliting Plt Morphology Comment RBC Morphology Dimorphic RBCs Polychromasia Hypochromasia Poikilocytosis Anisocytosis Microcytosis Macrocytosis Spherocytes Pappenheimer Bodies Sickle Cells Target Cells Tear Drop Cells Ovalocytes Helmet Cells [place] Bodies [place] Rings [place] Cells Bite Cells Crenated Cell Elliptocytes Acanthocytes (Spur) Rouleaux Hemoglobin C Crystals Schistocytes Malaria parasites Michael Bodies Hem Pathologist Commnt Sodium 139 (137-145) mmol/L Potassium 4.3 (3.6-5.0) mmol/L Chloride 103.9 (98-107) mmol/L Carbon Dioxide 24 (22-30) mmol/L Anion Gap 15 mmol/L BUN 9 (7-17) mg/dL Creatinine 0.9 (0.7-1.2) mg/dL Estimated GFR > 60 ml/min BUN/Creatinine Ratio 10 % Glucose 99 (65-100) mg/dL Calcium 8.6 (8.4-10.2) mg/dL Total Bilirubin 0.60 (0.1-1.2) mg/dL Direct Bilirubin < 0.2 (0-0.2) mg/dL Indirect Bilirubin 0.4 mg/dL AST 18 (5-40) units/L ALT 20 (7-56) units/L Alkaline Phosphatase 70 (35-129) units/L Total Protein 7.0 (6.3-8.2) g/dL Albumin 4.2 (3.9-5) g/dL Albumin/Globulin Ratio 1.5 % Lipase (13-60) units/L Urine Color (Yellow) Urine Turbidity (Clear) Urine pH (5.0-7.0) Ur Specific [place] (1.003-1.030) Urine Protein (Negative) mg/dL Urine Glucose (UA) (Negative) mg/dL Urine Ketones (Negative) mg/dL Urine Blood (Negative) Urine Nitrite (Negative) Urine Bilirubin (Negative) Urine Urobilinogen (<2.0) mg/dL Ur Leukocyte Esterase (Negative) Urine WBC (Auto) (0.0-6.0) /HPF Urine RBC (Auto) (0.0-6.0) /HPF U Epithel Cells (Auto) (0-13.0) /HPF Urine HCG, Qual (Negative) - EKG Data -: EKG Interpreted by Me (attending physician) EKG shows normal: sinus rhythm (sinus rhythm at 72 bpm) Rate: normal - EKG Data Interpretation: no acute changes, normal EKG - Radiology Data Radiology results: report reviewed CT scan of the abdomen and pelvis with IV and by mouth contrast and pelvic ultrasound dictated by radiologist's report reviewed by myself. No acute findings noted. Please see details below. Also see CT scan of the abdomen and pelvis without IV contrast on 07/17/2018 below. Findings [facility] [address] [place] [address] Cat Scan Report Signed Patient: OFE DAVIS MR#: [id number] : 1990 Acct:[id number] Age/Sex: 27 / F ADM Date: 07/17/18 Loc: ED Attending Dr: Ordering Physician: MORRO GARCIA Date of Service: 07/17/18 Procedure(s): CT abdomen pelvis wo con Accession Number(s): [id number] cc: MORRO GARCIA CT ABDOMEN AND PELVIS WITHOUT CONTRAST INDICATION: RUQ, LUQ tenderness. COMPARISON: None similar. FINDINGS: Noncontrast abdomen and pelvis CT performed. LUNG BASES: Top normal heart size. Slight nonspecific distal esophageal wall prominence/thickening, not excluded for gastroesophageal reflux and/or hiatal hernia, amongst others. ABDOMEN: Please note that sensitivity to detect small visceral lesions is limited due to the absence of intravenous or oral contrast. Right hepatic lobe 18.4 cm in mid clavicular length. Otherwise grossly unremarkable unenhanced liver, spleen, gallbladder, pancreas, adrenals, aorta, IVC and kidneys. No ascites. Subtle mesenteric root haziness with multiple mesenteric lymph nodes, some subcentimeter while others prominent/enlarged to approximately 1.8 x 0.9 cm as on axial image 92, series 2 with various differential considerations including edema, inflammation, idiopathic or even neoplastic as lymphoma. Nonopacified GI tract evaluation limited, though grossly nonobstructive. Diffuse exaggerated gastric wall thickness, though suboptimally distended. Duodenum appears unremarkable. However, few proximal to mid small bowel loops as on axial series 2, images 86-130 demonstrate diffuse wall thickening with slight adjacent/mesenteric fat stranding, more so on the left on axial images 105-120. Further distal small bowel, including the terminal ileum appears unremarkable. Small 5 mm appendicolith possible, axial image 119. Mild stool throughout colon/possible constipation, more so proximally. Few distal descending colon diverticuli. Small fat containing umbilical hernia with a transverse neck of 0.7 cm. PELVIS: Grossly unremarkable non-opacified urinary bladder. Vague right lower quadrant 5.5 cm soft tissue fullness as on axial images 139-150, series 2, may be contributed by nonopacified small bowel, right adnexa/ovary and some questionable fluid. Approximately 2.9 cm left adnexal/ovarian soft tissue also noted as on axial image 140. Minimal left hemipelvic free fluid as on axial image 154. Tiny pelvic phleboliths.. Mild rectosigmoid stool. Unremarkable bones. CONCLUSION: 1. Mid small bowel segment diffuse wall thickening/enteritis with slight surrounding inflammatory stranding noted, as described, amongst others. 2. Subtle "becky mesentery" with various differential considerations, as discussed above. 3. Few other incidental findings, including slight distal esophageal prominence, prominent/slightly enlarged liver and mild diverticulosis, amongst others, as above. Thank you for the opportunity to participate in this patient's care. Transcribed By: RS Dictated By: ADELITA FOOTE MD Electronically Authenticated By: ADELITA FOOTE MD Signed Date/Time: 07/17/18 1040 DD/ 1023 TD/TT: 07/17/18 1040 Findings [facility] [address] [place] [address] Cat Scan Report Signed Patient: OFE DAVIS MR#: [id number] : 1990 Acct:[id number] Age/Sex: 27 / F ADM Date: 07/19/18 Loc: ED Attending Dr: Ordering Physician: ROSS DOS SANTOS Date of Service: 07/20/18 Procedure(s): CT abdomen pelvis w con Accession Number(s): [id number] cc: ROSS DOS SANTOS FINAL REPORT EXAM: CT ABDOMEN PELVIS W CON HISTORY: abominal pain, nausea, bloating TECHNIQUE: Routine axial imaging was obtained of the abdomen and pelvis follo wing the intravenous injection of 100 cc of Omnipaque 350. Oral Gastroview was also administered. D elayed imaging was obtained through the kidneys ureters and bladder. Sagittal coronal reconstructio ns were reviewed. Comparison is made of the study of 07/17/2018. FINDINGS: The lung bases are negative for infiltrates or effusions. The liver, gallbladder, biliary tree, pancreas, spleen, and adrenal glands appear normal. The kidneys enhance normally. There is no evidence of hydronephrosis. The abdominal aorta is normal in caliber. The portal vein enhances normally. The bowel loops are normal in caliber. There are few uncomplicated diverticula in the sigmoid colon. The appendix is not enlarged. There is no evidence of free fluid or adenopathy. In the pelvis the uterus and bladder appear normal. The skeletal structures do not show any acute changes. IMPRESSION: No acute process in the abdomen and pelvis. Several uncomplicated sigmoid diverticula. Transcribed By: Dictated By: LEXUS SUAZO MD Electronically Authenticated By: LEXUS SUAZO MD Signed Date/Time: 07/20/18712 DD/ 1 TD/TT: 07/20/18711 Findings [facility] [address] [place] [address] Ultrasound Report Signed Patient: OFE DAVIS MR#: [id number] : 1990 Acct:[id number] Age/Sex: 27 / F ADM Date: 07/19/18 Loc: ED Attending Dr: Ordering Physician: ROSS DOS SANTOS Date of Service: 07/20/18 Procedure(s): US pelvic complete Accession Number(s): [id number] cc: ROSS DOS SANTOS FINAL REPORT PROCEDURE: US PELVIC COMPLETE TECHNIQUE: Real-time transabdominal sonography in multiple planes of pelvis was performed with image documentation. This examination was performed without Doppler. Vascular abnormalities, including ovarian torsion, [place] [id number] HISTORY: pelvic pain/abnormal CT finding on 07/17/2018 COMPARISON: No prior studies are available for comparison. FINDINGS: UTERUS Size: 8.9 x 3.4 x 4.7 cm. Endometrial thickness: 8 mm. Orientation: anteverted. Cervix: Normal. Fibroids/masses: None. RIGHT Ovary: 4.2 x 3.1 x 4 6 cm. Appearance: Normal. LEFT Ovary: 3.3 x 2.2 x 3.1 cm. Appearance: Normal. Pelvic fluid: None. Other: None. IMPRESSION: Normal Examination Transcribed By: DELPHINE Dictated By: JOSY MENDEZ MD Electronically Authenticated By: JOSY MENDEZ MD Signed Date/Time: 07/20/18251 DD/ 0 TD/TT: 07/20/18250 - Medical Decision Making This is a 27-year-old female that is very pleasant here report that she is having similar symptoms to what she came in for on 07/17/2018 and she does not feel any better and report is an prescription that was given to her. She was hearing to 07/05/[address] scan without contrast which shows some diverticulosis and other abnormality in her abdomen and pelvis which were not acute. I spoke with Dr. Hoffmann and she wants patient to have repeat labs and also CT scan of the abdomen and pelvis by mouth and IV contrast which was done. This was dictated by radiologist and reviewed by myself and reports no acute abnormalities except for for ecchymosis without diverticulitis. Patient abdo rebeca exam is normal. Lab work included CBC, CMP, lipase and urinalysis is stable. Patient also had pelvic ultrasound done and shows no acute abnormalities but she refused transvaginal ultrasound she said she is a virgin and does not want to have that. This was discussed with Dr. Hoffmann. I discussed CT scan and ultrasound report patient lab work and told her that she needs to follow up with her primary care physician and also with gastroenterology for her chronic gastritis. She was given Zofran, Bentyl, Maalox and lidocaine in emergency room physician felt better. Patient also found to have upper respiratory with cough and congestion despite going on for over 2 weeks. I will cover patient for upper respiratory infection and also for nausea and she needs refill on her omeprazole. She was undescended discharge instruction, need to follow-up with the diagnosis and medication and discharged home in stable condition with prescription for omeprazole, Zofran, Bentyl, Zyrtec and Flonase, Augmentin. Vital signs stable she is afebrile and in no acute distress. - Differential Diagnosis liver disease, appendicitis,RENNY, pancreatitis, appendicitis, colitis, UTI Critical care attestation.: If time is entered above; I have spent that time in minutes in the direct care of this critically ill patient, excluding procedure time. ED Disposition Clinical Impression: URI with cough and congestion, Nausea, Diverticulosis of colon, Malaise and fatigue, Body aches Abdominal pain Qualifiers: Abdominal location: generalized Qualified Code(s): R10.84 - Generalized abdominal pain Disposition: TO HOME OR SELFCARE Is pt being admited?: No Does the pt Need Aspirin: No Condition: Stable Instructions: Acute Nausea and Vomiting (ED), Abdominal Pain (ED), Fatigue (ED), Upper Respiratory Infection (ED), Musculoskeletal Pain (ED), Weakness (ED) Additional Instructions: Please follow up with pipe fitter apprentice regarding chronic gastritis and also primary care physician and if he do not have a primary care physician follow-up at this outside Medical Center in 2-3 days. If your condition worsens, return to the emergency room. Pain medication to include Zyrtec, Flonase, Augmentin for upper respiratory infection and other problems though, Zofran and Bentyl for stomach problems. Increase her fluid intake to at least 2-3 L of water daily Referrals: KENTRELL RIVERA [Primary Care Provider] - 2-3 Days [facility] [Provider Group] - 2-3 Days [facility] [Outside] - 3-5 Days Forms: Work/School Release Form(ED)
[2018-07-20] MEDS ORDERED: ALUM-MAG HYDROX-SIMETH 200-200-20MG/5ML PO ONE (01:54)
[2018-07-20] MEDS ORDERED: LIDOCAINE VISCOUS 2% PO ONE (01:54)
[2018-07-20] MEDS ORDERED: BENTYL PO ONE (01:54)
[2018-07-20] MEDS ORDERED: ZOFRAN ODT PO ONE (01:55)
--- NOTE | 2018-07-20 02:52 | Ultrasound Report ---
FINAL REPORT PROCEDURE: US PELVIC COMPLETE TECHNIQUE: Real-time transabdominal sonography in multiple planes of pelvis was performed with image documentation. This examination was performed without Doppler. Vascular abnormalities, including ova terri torsion, will not be detectable without Doppler evaluation. CPT 56777 HISTORY: pelvic pain/abnormal CT finding on 07/17/2018 COMPARISON: No prior studies are available for comparison. FINDINGS: UTERUS Size: 8.9 x 3.4 x 4.7 cm. Endometrial thickness: 8 mm. Orientation: anteverted. Cervix: Normal. Fibroids/masses: None. RIGHT Ovary: 4.2 x 3.1 x 4 6 cm. Appearance: Normal. LEFT Ovary: 3.3 x 2.2 x 3.1 cm. Appearance: Normal. Pelvic fluid: None. Other: None. IMPRESSION: Normal Examination
[2018-07-20 04:36] LABS: Hematocrit 37.3 % (30.3-42.9); Hemoglobin 11.9 gm/dl (10.1-14.3); Mean Corpuscular HGB Conc 32 % (30-34); Platelet Count 200 K/mm3 (140-440); Red Blood Count 5.44 M/mm3 (3.65-5.03); Red Cell Distribution Width 15.4 % (13.2-15.2)
[2018-07-20 04:37] LABS: Mean Corpuscular Volume 69 fl (79-97)
[2018-07-20 05:02] LABS: Alanine Aminotransferase 20 units/L (7-56); Albumin 4.2 g/dL (3.9-5); BUN/Creatinine Ratio 10; Blood Urea Nitrogen 9 mg/dL (7-17); Calcium 8.6 mg/dL (8.4-10.2); Hemolysis Index 3
[2018-07-20 05:04] LABS: Bilirubin,Direct < 0.2 mg/dL (0-0.2)
[2018-07-20 05:28] LABS: Anisocytosis 2+; Basophils % (Manual) 0 % (0.0-1.8); Hypochromasia 1+; Total Cells Counted 100
[2018-07-20 05:29] LABS: Platelet Estimate Consistent w Auto; Tear Drop Cells 1+
--- NOTE | 2018-07-20 07:13 | Cat Scan Report ---
FINAL REPORT EXAM: CT ABDOMEN PELVIS W CON HISTORY: abominal pain, nausea, bloating TECHNIQUE: Routine axial imaging was obtained of the abdomen and pelvis following the intravenous in jection of 100 cc of Omnipaque 350. Oral Gastroview was also administered. Delayed imaging was obtain ed through the kidneys ureters and bladder. Sagittal coronal reconstructions were reviewed. Compariso n is made of the study of 07/17/2018. FINDINGS: The lung bases are negative for infiltrates or effusions. The liver, gallbladder, biliary tree, pancreas, spleen, and adrenal glands appear normal. The kidneys enhance normally. There is no evidence of hydronephrosis. The abdominal aorta is normal in caliber. The portal vein enhances normally. The bowel loops are normal in caliber. There are few uncomplicated diverticula in the sigmoid colon. The appendix is not enlarged. There is no evidence of free fluid or adenopathy. In the pelvis the [place] and bladder appear normal. The skeletal structures do not show any acute changes. IMPRESSION: No acute process in the abdomen and pelvis. Several uncomplicated sigmoid diverticula.
== END 2018-07-20 08:03 | disposition home or self-care (01) ==
LOC: ED 22:18
DX: K57.90 Diverticulosis of intestine, part unspecified, without perforation or abscess without bleeding (principal); J06.9 Acute upper respiratory infection, unspecified; F17.200 Nicotine dependence, unspecified, uncomplicated
CPT/HCPCS: 36415; 74177; 76856; 80048; 80076; 81001; 81025; 83690; 85007; 85025; 93005; 93010; 99284; Q9967; Q0162

== ENCOUNTER 2018-07-23 00:14 | Emergency (ER) | payer SELFPAY ==
[2018-07-23] MEDS ORDERED: ALUM-MAG HYDROX-SIMETH 200-200-20MG/5ML PO ONE (02:40)
[2018-07-23] MEDS ORDERED: ZOFRAN ORAL LIQ PO ONE (02:40)
[2018-07-23] MEDS ORDERED: PROVENTIL IH ONE (02:40)
[2018-07-23] MEDS ORDERED: PEPCID PO ONE (02:40)
[2018-07-23] MEDS ORDERED: TYLENOL PO ONE (02:40)
--- NOTE | 2018-07-23 02:41 | Emergency Department Report ---
ED General Adult HPI - General Chief complaint: Chest Pain Stated complaint: YUMIKO Time Seen by Provider: 07/23/18 02:23 Source: patient, RN notes reviewed, old records reviewed Mode of arrival: Ambulatory Limitations: No Limitations - History of Present Illness Initial comments: This is a 27-year-old female, not known to this provider previously, history of obesity, tobacco consumption, cannabis consumption. Patient presents to the emergency room today with a complaint of cough, mucus production, bilateral breast, chest wall pain, epigastric abdominal pain, mild nausea, no vomiting. The symptoms have been going on for a few days to a few weeks. The patient denies , oral contraceptive use, DVT, pulmonary embolus risk factors. Patient reports her last cigarette was yesterday morning. She reports many friends, family members consume tobacco. Occasionally consumes cannabis. Patient has had an extensive workup for her abdominal pain within the past week, including multiple rounds of unremarkable laboratory studies, and multiple CT scans of the abdomen and pelvis. Her symptoms today are central in the chest, did not radiate anywhere, present for weeks, and do not appear to have exacerbating or relieving factors. She is taking her amoxicillin, and endorses that Zofran typically makes her nausea feel better, and is attempting to take the other medications that were prescribed for her, but is having some difficulty with her finances affording all the medications. -: Gradual Location: chest, back, abdomen Radiation: non-radiation Severity scale (0 -10): 10 Quality: aching Consistency: intermittent Improves with: other Worsens with: other Associated Symptoms: chest pain, cough, malaise, nausea/vomiting. denies: confusion, diaphoresis, fever/chills, headaches, loss of appetite, rash, seizure, shortness of breath, syncope, weakness - Related Data Previous Rx's Medication Instructions Recorded Last Taken Type cephALEXin [Keflex] 1,000 mg PO Q12HR #40 cap 08/28/16 Unknown Rx Ciprofloxacin HCl [Cipro] 500 mg PO BID #14 tablet 07/17/18 Unknown Rx Omeprazole 40 mg PO DAILY #30 capsule. 07/17/18 Unknown Rx Ondansetron [Zofran Odt] 4 mg PO Q8HR PRN #12 tab.rapdis 07/17/18 Unknown Rx Amoxicillin/K Clav Tab [Augmentin 1 tab PO Q12HR #20 tab 07/20/18 Unknown Rx 875MG TAB] Cetirizine HCl [ZyrTEC] 10 mg PO QAM 14 Days #14 capsule 07/20/18 Unknown Rx Fluticasone [Flonase] 1 spray NS QDAY 14 Days #1 bottle 07/20/18 Unknown Rx Omeprazole 40 mg PO QDAY 30 Days #30 07/20/18 Unknown Rx capsule. Ondansetron [Zofran ODT TAB] 8 mg PO Q8HR PRN #12 tab.rapdis 07/20/18 Unknown Rx ALBUTEROL Inhaler(NF) [VENTOLIN 1 puff IH Q4HR PRN #1 inha 07/23/18 Unknown Rx Inhaler(NF)] Nicotine [Nicotine Patch] 1 each TD QDAY #30 patch.td24 07/23/18 Unknown Rx Allergies Allergy/AdvReac Type Severity Reaction Status Date / Time sulfamethoxazole Allergy Swelling Verified 08/28/16 06:37 [From Bactrim] trimethoprim [From Bactrim] Allergy Swelling Verified 08/28/16 06:37 ED Review of Systems ROS: Stated complaint: YUMIKO Other details as noted in HPI Constitutional: denies: fever Eyes: denies: vision change ENT: denies: epistaxis Respiratory: cough Cardiovascular: chest pain Gastrointestinal: abdominal pain, nausea, vomiting Genitourinary: denies: dysuria Musculoskeletal: arthralgia, myalgia Skin: denies: lesions Neurological: denies: weakness ED Past Medical Hx - Past Medical History Previous Medical History?: Yes Additional medical history: Gastritis. Obesity - Surgical History Past Surgical History?: No - Social History Smoking Status: Current Every Day Smoker Substance Use Type: None - Medications Home Medications: Home Medications Medication Instructions Recorded Confirmed Last Taken Type cephALEXin [Keflex] 1,000 mg PO Q12HR #40 cap 08/28/16 Unknown Rx Ciprofloxacin HCl [Cipro] 500 mg PO BID #14 tablet 07/17/18 Unknown Rx Omeprazole 40 mg PO DAILY #30 capsule. 07/17/18 Unknown Rx Ondansetron [Zofran Odt] 4 mg PO Q8HR PRN #12 tab.rapdis 07/17/18 Unknown Rx Amoxicillin/K Clav Tab [Augmentin 1 tab PO Q12HR #20 tab 07/20/18 Unknown Rx 875MG TAB] Cetirizine HCl [ZyrTEC] 10 mg PO QAM 14 Days #14 capsule 07/20/18 Unknown Rx Fluticasone [Flonase] 1 spray NS QDAY 14 Days #1 bottle 07/20/18 Unknown Rx Omeprazole 40 mg PO QDAY 30 Days #30 07/20/18 Unknown Rx capsule. Ondansetron [Zofran ODT TAB] 8 mg PO Q8HR PRN #12 tab.rapdis 07/20/18 Unknown Rx ALBUTEROL Inhaler(NF) [VENTOLIN 1 puff IH Q4HR PRN #1 inha 07/23/18 Unknown Rx Inhaler(NF)] Nicotine [Nicotine Patch] 1 each TD QDAY #30 patch.td24 07/23/18 Unknown Rx ED Physical Exam - General Limitations: No Limitations General appearance: alert, in no apparent distress, obese - Head Head exam: Present: atraumatic, normocephalic - Eye Eye exam: Present: normal appearance, EOMI. Absent: nystagmus - ENT ENT exam: Present: normal exam, normal orophraynx, mucous membranes moist, normal external ear exam - Neck Neck exam: Present: normal inspection, full ROM. Absent: tenderness, meningismus - Respiratory Respiratory exam: Present: normal lung sounds bilaterally, other (there is no breast tenderness. During breast examination, chaperoned by pediatric acute care unit nurse Keisha Nino). Absent: respiratory distress, wheezes, rales, rhonchi, stridor, chest wall tenderness - Cardiovascular Cardiovascular Exam: Present: regular rate, normal rhythm, normal heart sounds. Absent: bradycardia, tachycardia, irregular rhythm, systolic murmur, diastolic murmur, rubs, gallop - GI/Abdominal GI/Abdominal exam: Present: soft. Absent: distended, tenderness, guarding, rebound, rigid, pulsatile mass - Extremities Exam Extremities exam: Present: normal inspection, full ROM, other (2+ pulses noted in the bilateral upper, lower extremities. Compartments soft. No long bony tenderness. The pelvis is stable.). Absent: tenderness, pedal edema, joint swelling, calf tenderness - Back Exam Back exam: Present: normal inspection, full ROM. Absent: tenderness, CVA tenderness (R), paraspinal tenderness, vertebral tenderness - Neurological Exam Neurological exam: Present: alert, oriented X3, CN II-XII intact, normal gait, other (Extraocular movements intact. Tongue midline. No facial droop. Facial sensation intact to light touch in the V1, V2, V3 distribution bilaterally. 5 and 5 strength in 4 extremities.. Sensation is intact to light touch in 4 extremities.). Absent: motor sensory deficit - Psychiatric Psychiatric exam: Present: normal affect, normal mood - Skin Skin exam: Present: warm, dry, intact, normal color. Absent: rash ED Course Vital Signs 07/23/18 07/23/18 00:28 01:59 Temperature 98.7 F Pulse Rate 89 Respiratory 18 18 Rate Blood Pressure 121/80 [Right] O2 Sat by Pulse 100 99 Oximetry - Reevaluation(s) Reevaluation #1: 07/23/18 03:40 Differential diagnosis, including not limited to: Costochondritis, bronchitis, bronchiectasis, pneumonia, tobacco consumption, GERD, gastritis Assessment and plan: 27-year-old female with probable bronchitis, obese, tobacco consumption. Low risk by well's criteria, with no pulmonary embolus or DVT risk factors, perc negative EKG is morphologically unremarkable. Patient not hypoxic, and has no focal pulmonary findings on my examination. Her lung bases have been visualized twice within the past week via CT scan, and had not demonstrated any significant infiltrates. Furthermore, she is currently taking amoxicillin. Clinically doubt pneumonia, but we will continue her amoxicillin. Patient was given an affordable prescription card, and she was instructed to down below the "good Rx" application on her spot phone to assist in finding prescriptions at an affordable [place]. She is counseled to discontinue tobacco consumption, discontinue exposure to tobacco and cannabis, and she is counseled that tobacco induced bronchitis, smokers cough may persist for weeks to months. We have discussed diet and lifestyle modifications, which I think would be the most cost effective and overall effective means for the patient to decrease her symptoms. She feels improved, is resting comfortably, and is in no acute distress. ED Medical Decision Making - EKG Data -: EKG Interpreted by Me EKG shows normal: sinus rhythm, axis, intervals, QRS complexes, ST-T waves - Radiology Data Radiology results: report reviewed, image reviewed Prior CT scans reviewed Critical care attestation.: If time is entered above; I have spent that time in minutes in the direct care of this critically ill patient, excluding procedure time. ED Disposition Clinical Impression: Bronchitis, Abdominal pain Disposition: [id number] TO HOME OR SELFCARE Is pt being admited?: No Does the pt Need Aspirin: No Condition: Stable Instructions: Acute Bronchitis (ED) Additional Instructions: As we discussed, symptoms likely multifactorial, coming from excessive stomach acid, obesity, tobacco consumption, and smoker's cough. Symptoms will likely take a few months to improve completely. Discontinued tobacco consumption, and make sure to avoid exposure to tobacco, cannabis. Avoid consumption of heavy, spicy foods, and participate in physical activities as tolerated. I recommend weight loss, and aerobic exercise as the patient is able to tolerate, 6-8 cups of water per day, and plenty of fruits, fibers, green leafy vegetables, and foods that are low in saturated fats. Symptoms will likely take a few weeks to a few months to resolve. Follow up with a primary care doctor within the next 3-6 weeks. Return to the emergency room right away with new, worsening or different symptoms. Patient may discontinue the ciprofloxacin prescription. When going to purchase prescriptions, patient may use the [employer] a application, in conjunction with the affordable prescription card that was provided to her. Please return to the emergency room right away with new, worsening or different symptoms. Referrals: [facility] [Provider Group] - 3-5 Days [facility] [Provider Group] - 3-5 Days
[2018-07-23 03:49] VITALS: BP 131/75
== END 2018-07-23 03:59 | disposition home or self-care (01) ==
LOC: ED 00:14
DX: J40 Bronchitis, not specified as acute or chronic (principal); R10.13 Epigastric pain; R11.0 Nausea; F17.200 Nicotine dependence, unspecified, uncomplicated; E66.9 Obesity, unspecified; Z88.2 Allergy status to sulfonamides
CPT/HCPCS: 93005; 93010; 94640; 99283; Q0162